=== PATIENT | female | born 1980 | race Caucasian/White ===

== ENCOUNTER → 2022-04-06 02:04 | Outpatient (CLI) | payer MEDICARE, MEDICAID, SELFPAY ==
--- NOTE | 2022-04-06 10:26 | DI.RAD_ITS ---
Exam(s) XR CHEST 2V PA LATERAL EXAM: XR CHEST 2V PA LATERAL CLINICAL HISTORY: COUGH, R05.8 TECHNIQUE: 2D digital imaging was performed of the chest. Two images were obtained. PA and lateral views were obtained. COMPARISON: No exams were available for comparison FINDINGS: MEDIASTINUM: Normal. HEART: Normal. PULMONARY VASCULATURE: Normal. LUNGS: Clear. PLEURAL SPACE: No pleural effusion or pneumothorax. BONE:Within normal limits for the patient's age. OTHER FINDINGS:Normal. IMPRESSION: No acute pulmonary findings. DATA REPOSITORY: RADIATION DOSE DELIVERED:
== END ==
PROVIDERS: PCP Internal Medicine; Visit Provider Physician Assistant Medical
DX: R05.8 Other specified cough (principal)
CPT/HCPCS: 71046

== ENCOUNTER 2022-04-06 12:37 | Outpatient (CLI) | payer MEDICARE, MEDICAID, SELFPAY ==
[2022-04-06 10:55] LABS: Abs Immature Grans 0.01 10^3/uL (0.0-0.06); Absolute Basophil Count 0.08 10^3/uL (0.0-0.2); Absolute Eosinophil Count 0.42 10^3/uL (0.0-0.7); Absolute Lymphocyte Count 2.67 10^3/uL (1.2-3.4); Absolute Monocyte Count 0.63 10^3/uL (0.1-0.8); Absolute Neutrophil Count 5.15 10^3/uL (1.2-6.7); Basophils % 0.9; Eosinophils % 4.7; HGB 13.2 g/dL (11.2-15.7); Immature Grans % 0.1; Lymphocytes % 29.8; MCH 29.5 pg (27.0-33.0); MCHC 33.8 % (32.0-36.0); MCV 87 fL (80-95); MPV 10.8 fL (8.0-11.0); Neutrophils % 57.5; Platelet Count 344 10^3/uL (130-400); RBC 4.47 10^6/uL (3.93-5.22); RDW 12.3 % (11.7-14.6); RDW-SD 39.1 fL; WBC 8.96 10^3/uL (4.4-10.8)
[2022-04-06 11:32] LABS: C-Reactive Protein 1.49 mg/dL (0.0-0.3)
== END 2022-04-06 12:38 | disposition home or self-care (01) ==
LOC: LBO 12:38
PROVIDERS: PCP Internal Medicine; Visit Provider Physician Assistant Medical
DX: R05.8 Other specified cough (principal)
CPT/HCPCS: 36415; 71046; 85025; 86140

== ENCOUNTER 2023-04-12 12:53 | Emergency (ER) | payer MEDICARE, MEDICAID, SELFPAY ==
[2023-04-12 12:56] VITALS: PULSE 78; TEMP 36.3; O2SAT 98
--- NOTE | 2023-04-12 14:13 | ED.GENADUL_ITS ---
Discharge Plan Disposition Patient Disposition: Home Condition: Stable Discharge Details Clinical Impression: Complaint associated with gastric tube Primary Care Provider: Horace Hammond ED Provider: Nestor Joe Home Meds and New Rx's Prescriptions: Continued cholecalciferol (vitamin D3) 10,000 UNIT capsule 50,000 unit PO WEEKLY drospirenone-ethinyl estradiol 1 EACH tablet 1 ea PO DAILY Qty: 3 6RF Rx Instructions: 1 tab PO daily for 21 days, throw away placebos and repeat for continuous ovarian suppression acetylcysteine 500 mg capsule 500 mg PO DAILY boron citrate 3 mg tablet PO calcium carbonate 500 mg calcium (1,250 mg) tablet 500 mg PO DAILY cannabidiol 100 mg/mL solution PO Zyrtec 10 mg capsule 10 mg PO DAILY PRN docusate sodium 50 mg capsule 50 mg PO DAILY ergocalciferol (vitamin D2) 1,250 mcg (50,000 unit) capsule 1,250 mcg PO QMONTH famotidine 20 mg tablet 20 mg PO DAILY levomefolate calcium [L-Methylfolate] 15 mg tablet 15 mg PO DAILY acetaminophen [Mapap (acetaminophen)] 500 mg/15 mL liquid 500 mg PO QID PRN acetylcysteine [NAC] 600 mg capsule 600 mg PO DAILY drospirenone-ethinyl estradiol [[place]] 3-0.03 mg tablet 1 tab PO DAILY carbamazepine [Tegretol] 100 mg/5 mL suspension 200 mg PO QID Orazinc 25 mg zinc (110 mg) tablet 25 mg PO DAILY Discharge Instructions Additional Instructions: Please follow-up with Dr. Suero. Please contact your primary care physician to arrange follow-up. Return to the ER immediately for any worsening or new concerning symptoms. 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 Simulation Software Engineer unable to remove fluid from tube but is able to inject. G-tube is typically replaced at home by family members every 1 to 3 months. 151 --G-tube replaced with Rivear catheter by general surgeon, Dr. Suero. Plan for discharge with outpatient follow-up with Dr. Suero. Usual customary discharge instructions reviewed. HPI General Mode of arrival: wheelchair . Date/Time Provider Initiated Documentation: 04/12/23 13:13 . Limitations to Documentation: no limitations . Information obtained by: family . 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 History and review of systems limited -history obtained by indigo mixer/brother. Related Data Home Medications Medication Instructions Recorded Confirmed cholecalciferol (vitamin D3) 250 50,000 unit PO WEEKLY 04/23/14 04/12/23 mcg (10,000 unit) capsule drospirenone 3 mg-ethinyl 1 ea PO DAILY ##3 10/14/17 estradiol 0.03 mg tablet acetaminophen 500 mg/15 mL oral 500 mg PO QID PRN 11/10/22 liquid (Mapap (acetaminophen)) acetylcysteine 500 mg capsule 500 mg PO DAILY 11/10/22 04/12/23 acetylcysteine 600 mg capsule (NAC) 600 mg PO DAILY 11/10/22 boron citrate 3 mg tablet mg PO 11/10/22 calcium carbonate 500 mg calcium 500 mg PO DAILY 11/10/22 04/12/23 (1,250 mg) tablet cannabidiol 100 mg/mL oral solution PO 11/10/22 carbamazepine 100 mg/5 mL oral 200 mg PO QID 11/10/22 04/12/23 suspension (Tegretol) cetirizine 10 mg capsule (Zyrtec) 10 mg PO DAILY PRN 11/10/22 04/12/23 docusate sodium 50 mg capsule 50 mg PO DAILY 11/10/22 04/12/23 drospirenone 3 mg-ethinyl 1 tab PO DAILY 11/10/22 04/12/23 estradiol 0.03 mg tablet ([place]) ergocalciferol (vitamin D2) 1,250 1,250 mcg PO QMONTH 11/10/22 04/12/23 mcg (50,000 unit) capsule famotidine 20 mg tablet 20 mg PO DAILY 11/10/22 04/12/23 levomefolate calcium 15 mg tablet 15 mg PO DAILY 11/10/22 04/12/23 (L-Methylfolate) zinc sulfate 25 mg zinc (110 mg) 25 mg PO DAILY 04/12/23 04/12/23 tablet (Orazinc) Previous Rx's Medication Instructions Recorded drospirenone 3 mg-ethinyl 1 ea PO DAILY ##3 10/14/17 estradiol 0.03 mg tablet Allergies Allergy/AdvReac Type Severity Reaction Status Date / Time phenobarbital Allergy Unverified 04/12/23 15:20 General Stated Complaint: GenMedical IZA: 3 PFSH All Active Problems (Updated 04/12/23 @ 15:16 by Nestor Joe MD) Complaint associated with gastric tube (Acute) Medical History Retts syndrome Red eye Flatulence/wind Diarrhea Abnormal weight loss Osteoporosis Muscle spasms of neck Idiopathic urticaria Granuloma annulare Seborrheic dermatitis Cellulitis Vaginal bleeding Pneumonia URI (upper respiratory infection) Disorder of eye Social History Smoking/Tobacco Use Status: Never Second Hand Exposure: No Smoking risk assessment performed?: Yes Alcohol Intake: never Drug use: Never Substance use type: does not use Exam Const General: no acute distress HENMT Mouth: moist mucous membranes GI Palpation: soft, not rigid and nontender Other: g tube in place Course Vital Signs Vital signs: Vital Signs Temperature 36.3 C L 04/12/23 12:56 Pulse 78 04/12/23 12:56 Pulse Oximetry 98 04/12/23 12:56 Temperature 36.3 C L 04/12/23 12:56 Temperature Source Temporal Artery Scan 04/12/23 12:56 Pulse 78 04/12/23 12:56 Respiratory Effort Normal, Splinting 04/12/23 12:59 Blood Pressure Position Sitting 04/12/23 12:56 Pulse Oximetry 98 04/12/23 12:56 Oxygen Delivery Method Room Air 04/12/23 12:56 Oxygen Flow Rate 0 04/12/23 12:56
--- NOTE | 2023-04-12 15:22 | SCONE_ITS ---
Date of service: 04/12/23 Time of Service: 15:26 Assessment and Plan Assessment and plan (1) Complication of feeding tube: Status: Acute Assessment and plan: Naveen is a pleasant 43-year-old female with developmental delay who was brought into the emergency department by her caregiver because of malfunction of her low-profile gastric feeding tube. Unfortunately we did not have the right size of low-profile gastric feeding tube at the hospital or in my office so a 24 Slov[place] urinary catheter was placed without difficulty. I also placed a abdominal binder around the patient to keep her from grabbing at the tube. Per get her caregiver they are hoping that her replacement tube will be in the mail sometime this week. I did tell him that if they have trouble with the feeding tube or the new G-tube does not arrive over the next day or 2 to give us a call and we will see if we can help out in any way by getting 1 overnighted. History of Present Illness Narrative: Loly Sanders is a pleasant 43-year-old female with developmental delay who was brought into the emergency department by her caregiver for a malfunctioning G- tube. He has been changing the low-profile G-tube at home about every 2 to 3 months. Today he noticed that it came out when he turned his back and he quickly put it back in to the track. He had a hard time filling the balloon so he came to the emergency department as he is waiting for the replacement tube at this time. He did not notice any distress when he placed the G-tube back in at home. They were able to give her her medications this morning. Consults Consult date: 04/12/23 Requesting physician: Nestor Joe Review of Systems Unobtainable due to mental status and Unobtainable due to PFSH All Active Problems (Updated 04/12/23 @ 15:31 by Jazmyne Suero MD) Complication of feeding tube (Acute) Complaint associated with gastric tube (Acute) Medical History Retts syndrome Red eye Flatulence/wind Diarrhea Abnormal weight loss Osteoporosis Muscle spasms of neck Idiopathic urticaria Granuloma annulare Seborrheic dermatitis Cellulitis Vaginal bleeding Pneumonia URI (upper respiratory infection) Disorder of eye Social History Smoking/Tobacco Use Status: Never Second Hand Exposure: No Smoking risk assessment performed?: Yes Alcohol Intake: never Drug use: Never Substance use type: does not use Exam Const General: no acute distress Resp Effort & Inspection: normal respiratory effort GI Inspection: other (24F low profile G tube in place) Other: I deflated the balloon on the patient's G-tube and was able to remove the G-tube without difficulty. We did not have the same size in the hospital and therefore a 20 [place] urinary catheter was gently inserted through the track. Once in pl [place] the balloon was insufflated with 5 cc of air. I then gently tugged on the Rivera and it stayed in place. A stopper was placed at the end of the tube. The tube was curled and an abdominal binder was applied to the patient's abdomen to keep her hands from the catheter. An cc of saline was then pushed through the tube without complication. Results Last Vital Signs Temp 97.3 F L 04/12/23 12:56 Pulse 78 04/12/23 12:56 Pulse Ox 98 04/12/23 12:56
[2023-04-12 15:29] VITALS: RESP 18
== END 2023-04-12 15:29 | disposition home or self-care (01) ==
PROVIDERS: Emergency Provider Student in an Organized Health Care Education/Training Program; PCP Internal Medicine
DX: K94.20 Gastrostomy complication, unspecified (principal); R68.89 Other general symptoms and signs; Z93.1 Gastrostomy status
CPT/HCPCS: 43762; 99283

== ENCOUNTER 2025-03-20 02:19 | Outpatient (CLI) | payer MEDICARE, MEDICAID, SELFPAY ==
--- NOTE | 2025-03-20 07:00 | DI.RAD_ITS ---
Exam(s) XR FOOT LT COMPLETE EXAM: XR FOOT LT COMPLETE CLINICAL HISTORY: Left foot pain/Deformity,M79.672,M21.962. TECHNIQUE: 2D digital imaging was performed. Three views. COMPARISON: CR XR FOOT RT COMPLETE from 03/20/2025 FINDINGS: Exam is limited by overlying material and 2 of the three views. BONES: No acute fracture is present. There is a chronic appearing deformity at the base of the proximal phalanx of the 5th toe. No bony destructive lesion is seen. JOINTS: No dislocation present. No significant degenerative changes. SOFT TISSUE: Normal. IMPRESSION: No acute abnormality. DATA REPOSITORY: RADIATION DOSE DELIVERED:
--- NOTE | 2025-03-20 07:00 | DI.RAD_ITS ---
Exam(s) XR FOOT RT COMPLETE EXAM: XR FOOT RT COMPLETE CLINICAL HISTORY: foot pain/deformity Right,M79.671,M21.961. TECHNIQUE: 2D digital imaging was performed. Three views. COMPARISON: No exams were available for comparison FINDINGS: Exam is limited by overlying material. BONES: No acute fracture is present. No bony destructive lesion is seen. JOINTS: No dislocation present. No significant degenerative changes. SOFT TISSUE: Normal. IMPRESSION: Unremarkable radiographs of the right foot. DATA REPOSITORY: RADIATION DOSE DELIVERED:
== END 2025-03-20 02:39 ==
LOC: DI 02:19
PROVIDERS: PCP Internal Medicine; Visit Provider Podiatrist
DX: M79.671 Pain in right foot (principal); M21.961 Unspecified acquired deformity of right lower leg; M21.962 Unspecified acquired deformity of left lower leg; M79.672 Pain in left foot
CPT/HCPCS: 73630